=== PATIENT | male | born 1955 | race Caucasian/White ===

== ENCOUNTER 2017-03-06 12:30 | Day surgery (SDC) | payer OTHER ==
[~2017-03-06] VITALS: Ht 175.3 cm; Wt 81.7 kg
--- NOTE | 2017-03-06 14:38 | NUR ---
03/06/17 1438 AlfDonnie ybarra PT'S ABD IS FIRM, PT ENCOUARGED TO PASS THE AIR FROM HIS COLON. PT NOW PASSING GAS.
--- NOTE | 2017-03-06 16:24 | NUR ---
RETURNED TO ROOM8 NEEDS TO BE OBSERVED AWHILE LONGER DUE TO ABD CRAMPING.
--- NOTE | 2017-03-06 16:56 | NUR ---
AMB WELL TO BR. STANDS STRAIGHT UP BRISK PACE. RETURNED TO ROOM C/O PAIN NO BETTER THAN BEFORE. 01/10. MOVES ABOUT IN BED. STATES HES" NOT PASSING ANY GAS"
--- NOTE | 2017-03-09 13:40 | OR ---
[facility] [address] [place], [place] [address] Signed DATE OF PROCEDURE: 03/06/17 PREOPERATIVE DIAGNOSES Increased flatulence and bowel habit changes, bowel movements 4-5 times a day. Family history of colon cancer. POSTOPERATIVE DIAGNOSES Flat polyp of hepatic flexure. Sessile polyp of sigmoid and rectum. PROCEDURE Total colonoscopy to cecum with hot snare polypectomy x1, cold morcellation polypectomy x1, and mucosal lift with Endomark tattoo dye, and complex snare polypectomy. SURGEON: Trinidad Herrera MD. ANESTHESIA: Intravenous sedation, Fentanyl 100 mcg, Versed 9 mg. INDICATION This 61-year-old white man is a patient Dr. Mitch Nuno. He has had increasing flatulence and bowel habit changes. He has undergone a barium enema number of years ago. He has bowel movements currently #4-5 a day. He has family history of colon cancer as well. He is admitted at this time to undergo colonoscopy. He understands the risks of bleeding, infection, and perforation. FINDINGS The prep was excellent. Complete colonoscopy was undertaken to the cecum as well as intubation into the ileum. The ilium had some mucosal lymphoid nodules, which would be considered normal. The remaining colon was well prepped. He had a sessile flat polyp at the hepatic flexure, very subtle but absolutely present requiring elaborate excisional technique. Another small sessile polyp was noted in the distal sigmoid and another in the rectum, both were excised as well. DESCRIPTION OF PROCEDURE The patient was brought to the endoscopy suite and placed in lateral decubitus position, and given intravenous sedation to the point of slurred speech and nystagmus. Digital rectal examination was normal. An Olympus video colonoscope was passed in the rectum and manipulated throughout the colon ultimately intubating the cecum. The ileocecal valve and appendiceal orifice were identified as normal. The scope was passed into the ilium through the ileocecal valve without much problem. The scope was passed relatively far Electronically Signed By: TRINIDAD HERRERA MD 03/09/17 1340 PATIENT NAME: HUDSON MONTELONGO OPERATIVE REPORT DATE OF : 55 PHYSICIAN: TRINIDAD HERRERA MD REPORT #: [id number] REPORT IS CONFIDENTIAL AND NOT TO BE RELEASED WITHOUT AUTHORIZATION [facility] [address] [place], [place] [address] Signed into the ileum. There was some mucosal lymphoid nodules as expected. No sign of Crohn's disease or other problem. Biopsies were obtained. The scope was withdrawn to the cecum where the appendiceal orifice was well visualized and normal. The scope was carefully withdrawn. At the hepatic flexure, there was noted a flat polyp, very subtle in its 1st appearance. Narrow band imaging was used to better characterize the polyp. A mucosal lift technique was deemed most appropriate. Using Endomark tattoo and a sclerotherapy needle, the central portion of a flat polyp was injected, plan for mucosal lift. Using a hot snare polypectomy technique with 2 snare approaches, the polyp was completely excised. It was placed in a Colbert net and withdrawn upon withdrawal of scope. A small polyp was noted at the sigmoid at approximately 15 cm and the scope was reintroduced after offloading the initial polyp. Polyp was re-examined at 15 cm and with narrow band imaging likely consistent with an adenoma. It was excised with hot snare polypectomy technique without mucosal lift technique. Further withdrawal of scope showed a small polyp also sessile at 10 cm. This was excised completely with cold morcellation technique. Retroflexed view was normal. Scope was removed and the patient was taken to recovery room in good condition. CONCLUDING DIAGNOSIS: Polyps x3. PLAN Recommend Citrucel 1 tablespoon each day starting in a week or so. Repeat colonoscopy in 1-2 years would be recommended. We will see him back in 4-6 weeks to assess that he is improved in his symptoms and to review his final pathology as well. MD RONNELL Rodriges/Eduardo /[id number] cc: Deon Nuno MD Electronically Signed By: TRINIDAD HERRERA MD 03/09/17 1340 PATIENT NAME: HUDSON MONTELONGO OPERATIVE REPORT DATE OF : 55 PHYSICIAN: TRINIDAD HERRERA MD REPORT #: [id number] REPORT IS CONFIDENTIAL AND NOT TO BE RELEASED WITHOUT AUTHORIZATION
== END 2017-03-06 17:29 | disposition home or self-care (01) ==
LOC: OPS 12:30 → DS 12:30 → OPS 14:00 → DS 14:00 → OPS 17:29
PROVIDERS: Surgery
PROC: 0DBK8ZX Excision of Ascending Colon, Via Natural or Artificial Opening Endoscopic, Diagnostic (ICD-10-PCS; 2017-03-06)
PROC: 0DBE8ZX Excision of Large Intestine, Via Natural or Artificial Opening Endoscopic, Diagnostic (ICD-10-PCS; 2017-03-06)
PROC: 3E0H8GC Introduction of Other Therapeutic Substance into Lower GI, Via Natural or Artificial Opening Endoscopic (ICD-10-PCS; 2017-03-06)
PROC: 0DBH8ZX Excision of Cecum, Via Natural or Artificial Opening Endoscopic, Diagnostic (ICD-10-PCS; principal; 2017-03-06 14:00)
DX: D12.3 Benign neoplasm of transverse colon (principal); K63.5 Polyp of colon; Z80.0 Family history of malignant neoplasm of digestive organs; Z90.89 Acquired absence of other organs; Z98.890 Other specified postprocedural states
CPT/HCPCS: 99152; 99153; J2250; J2270; J3010; J7120

== ENCOUNTER 2017-07-03 15:46 | Emergency (ER) | payer OTHER ==
[~2017-07-03] VITALS: Ht 175.3 cm; Wt 77.1 kg
--- NOTE | ~2017-07-03 | DIAG ---
[facility] [address] [facility] [place], [place] [address] Draft DATE OF STUDY: 07/03/2017 INDICATION: This is a 61-year-old male referred for Holter evaluation secondary to palpitations. SUMMARY REPORT: The patient was monitored for 45 hours and 36 minutes. Total of 50 minutes of artifact, total beats recorded 224,726 beats. The patient was predominantly in sinus rhythm. Poor correlation between patient triggered events and any correlated arrhythmia. Average heart rate of 82 beats per minute. Minimum heart rate of 56 beats per minute and maximum heart rate 113 beats per minute. Arrhythmia was noted as rare premature atrial and ventricular contractions. CONCLUSION: 1. 45-hour Holter monitor with total of 224,726 beats recorded. 2. The patient was predominantly in sinus rhythm with poor correlation between patient triggered events and correlated arrhythmia. 3. Average heart rate of 82 beats per minute with maximum heart rate of 113 and minimum heart rate of 56 beats per minute. 4. Arrhythmia was noted as rare premature atrial and ventricular contractions. Alicia Kline MD MA/MONSTER /[id number] PATIENT NAME: REGINALDHUDSON WHIT DIAGNOSTIC STUDY DATE OF : 55 PHYSICIAN: ALICIA KLINE MD REPORT #: [id number] REPORT IS CONFIDENTIAL AND NOT TO BE RELEASED WITHOUT AUTHORIZATION
--- NOTE | 2017-07-04 19:06 | EKG ---
[facility] [address] [facility] [place] [address] Signed Sinus tachycardia Nonspecific ST abnormality Abnormal ECG No previous ECGs available Confirmed by BRENDA TERRELL MD ([id number]) on 07/04/2017 7:05:57 PM Electronically Signed By: BRENDA TERRELL MD 07/04/17 1906 PATIENT NAME: HUDSON MONTELONGO Electrocardiogram DATE OF : 55 PHYSICIAN: BRENDA TERRELL MD REPORT #: [id number] REPORT IS CONFIDENTIAL AND NOT TO BE RELEASED WITHOUT AUTHORIZATION
== END 2017-07-03 17:01 | disposition home or self-care (01) ==
LOC: ED 15:46
DX: R07.9 Chest pain, unspecified (principal); Z87.891 Personal history of nicotine dependence
CPT/HCPCS: 71046; 80053; 84484; 85025; 93005; 93010; 99284

== ENCOUNTER 2017-09-04 21:40 | Emergency (ER) | payer BC, OTHER ==
[~2017-09-04] VITALS: Ht 175.3 cm; Wt 77.1 kg
== END 2017-09-04 22:35 | disposition home or self-care (01) ==
LOC: ED 21:40
DX: S05.02XA Injury of conjunctiva and corneal abrasion without foreign body, left eye, initial encounter (principal); W22.8XXA Striking against or struck by other objects, initial encounter
CPT/HCPCS: 99282

== ENCOUNTER 2020-06-08 16:34 | Emergency (ER) | payer OTHER ==
[~2020-06-08] VITALS: Ht 175.3 cm; Wt 83.5 kg
[~2020-06-08 16:34] MED LIST: TOPROL XL25 MG PO; TRIAMCINOLONE A15 G1 TOP
[2020-06-08] MEDS ORDERED: ATORVASTATIN CA20 MG PO (16:57)
--- NOTE | 2020-06-09 17:34 | EKG ---
[facility] [address] [facility] [place] [address] Signed Normal sinus rhythm Normal ECG When compared with ECG of 03-JUL-2017 15:48, ST no longer depressed in Anterior leads Confirmed by JAVIER TARIQ MD ([id number]) on 06/09/2020 5:34:09 PM Electronically Signed By: JAVIER TARIQ MD 06/09/20 1734 PATIENT NAME: REGINALDHUDSON WHIT Electrocardiogram DATE OF : 55 PHYSICIAN: JAVIRE TARIQ MD REPORT #: [id number] REPORT IS CONFIDENTIAL AND NOT TO BE RELEASED WITHOUT AUTHORIZATION
== END 2020-06-08 19:06 | disposition home or self-care (01) ==
LOC: ED 16:34
DX: I20.0 Unstable angina (principal); E78.5 Hyperlipidemia, unspecified; Z87.891 Personal history of nicotine dependence; Z79.899 Other long term (current) drug therapy
CPT/HCPCS: 71045; 80053; 83735; 84484; 85025; 85379; 93005; 93010; 99285-25

== ENCOUNTER 2024-03-09 12:01 | Day surgery (SDC) | payer MEDICARE, OTHER ==
[~2024-03-09] VITALS: Ht 175.3 cm; Wt 88.2 kg
[~2024-03-09 12:01] MED LIST changes: +ATORVASTATIN CA20 MG PO; +IBLOOD GLUCOSE TEST STRIP 1 EA TEST VI PRN; +LACTATED RINGER'S 1,000 ML IV SCH; +LIDOCAINE HCL 1% 5 ML SDV INJ ONE; +MIDAZOLAM HCL 5 MG/5 ML VIAL IV PRN; +fentaNYL citrate 100 MCG/2 ML VIAL IV PRN
[2024-03-09 12:18] VITALS: BP 122/75
[2024-03-09] MEDS ORDERED: MIDAZOLAM HCL 5 MG/5 ML VIAL ONE (12:18)
[2024-03-09] MEDS ORDERED: fentaNYL citrate 100 MCG/2 ML VIAL ONE (12:18)
[2024-03-09 12:20] VITALS: BP 122/75
[2024-03-09] MEDS ORDERED: FIBER GUMMIES2 GM PO (12:23)
[2024-03-09] MEDS ORDERED: VITAMIN D325 MC2 PO (12:23)
[2024-03-09] MEDS ORDERED: TENORMIN100 MG PO (12:26)
[2024-03-09] MEDS ORDERED: FLECAINIDE ACET50 MG PO (12:26)
[2024-03-09 13:40] VITALS: BP 98/69
--- NOTE | 2024-03-09 14:04 | NUR ---
03/09/24 1404 Alley Awan 1321 PT ARRIVED IN PACU AWAKE WITH NO C/'S. ABD SOFT. [address] AT BEDSIDE. ALL QUESTIONS ANSWERED. 1340 SITTING AT BEDSIDE. DC INSTRUCTIONS GIVEN. ALL QUESTIONS ANSWERED. 1350 LEFT VIA W/C.
--- NOTE | 2024-03-15 14:27 | OR ---
[facility] [address] [place], [place] [address] Signed DATE OF OPERATION: 03/09/2024 SURGEON: Trinidad Herrera MD PREOPERATIVE DIAGNOSIS: Colon screening. POSTOPERATIVE DIAGNOSIS: Normal colon to cecum. PROCEDURE: Total colonoscopy to cecum. ANESTHESIA: Intravenous sedation fentanyl 100 mcg and Versed 4 mg. INDICATION: This 68-year-old white man last underwent colonoscopy in 2019, five years ago. He had a serrated adenoma in 2016. He does have family history of colon cancer in a maternal grandmother and a maternal grandfather. He is currently symptom free having no bleeding, diarrhea or constipation. He is admitted at this time to undergo colonoscopy for screening. He understands the risk of bleeding, infection, and perforation. FINDINGS: The prep was excellent. Complete colonoscopy was undertaken to the cecum. Good visualization of the cecum and all parts of the colon and rectum was accomplished. He had no evidence of polyps, diverticular formation, colitis, or cancer. PROCEDURE IN DETAIL: The patient was brought to the endoscopy suite and placed in lateral decubitus position, given intravenous sedation to point of slurred speech and nystagmus. Digital rectal examination was normal. An Olympus video colonoscope was passed in the rectum and manipulated throughout the colon ultimately intubating the cecum, the ileocecal valve and appendiceal orifice were normal. Scope was carefully withdrawn from that point. An area of the mid to distal right colon did show a tattoo from prior endoscopic evaluation showing no evidence of recurrent or persistent polyp. Further withdrawal of scope and close examination of the remaining colon and rectum showed no other abnormality. Retroflexed view was normal as well. The scope was straightened and withdrawn. The patient was taken to the recovery Electronically Signed By: TRINIDAD HERRERA MD 03/15/24 1427 PATIENT NAME: HUDSON MONTELONGO OPERATIVE REPORT DATE OF : 55 REPORT #: [id number] PHYSICIAN: TRINIDAD HERRERA MD PCP: SUZIE BUTTS PA-C REPORT IS CONFIDENTIAL AND NOT TO BE RELEASED WITHOUT AUTHORIZATION [facility] [address] [place], [place] [address] Signed room in good condition. CONCLUDING DIAGNOSIS: Normal colon to cecum. PLAN: Recommend repeat colonoscopy in 7 to 10 years given his family history and prior history of serrated adenoma, sooner if symptoms should occur. He will return to the ongoing care of TARAH Lindsey. MD RONNELL Rodriges/MODL /[id number] cc: Suzie Butts PA-C Copies: SUZIE BUTTS PA-C ~ Electronically Signed By: TRINIDAD HERRERA MD 03/15/24 1427 PATIENT NAME: HUDSON MONTELONGO OPERATIVE REPORT DATE OF : 55 REPORT #: [id number] PHYSICIAN: TRINIDAD HERRERA MD PCP: SUZIE BUTTS PA-C REPORT IS CONFIDENTIAL AND NOT TO BE RELEASED WITHOUT AUTHORIZATION
== END 2024-03-09 13:50 | disposition home or self-care (01) ==
LOC: OPS 12:01 → DS 12:02 → OPS 13:00 → DS 14:00 → OPS 14:00
PROVIDERS: ATTEND Surgery
PROC: 0DJD8ZZ Inspection of Lower Intestinal Tract, Via Natural or Artificial Opening Endoscopic (ICD-10-PCS; principal; 2024-03-09 13:00)
DX: Z12.11 Encounter for screening for malignant neoplasm of colon (principal); Z86.0101 Personal history of adenomatous and serrated colon polyps; Z79.899 Other long term (current) drug therapy; Z80.0 Family history of malignant neoplasm of digestive organs
CPT/HCPCS: 99153; G0500; J2250; J3010; J7121